=== PATIENT | female | born 1945 | race African-American/Black ===

== ENCOUNTER → 2020-02-18 | Outpatient (CLI) | payer MEDICARE ==
--- NOTE | 2020-02-18 09:05 | WOMENS IMAGING REPORT ---
EXAM DESCRIPTION: BILAT SCREENING MAMMO W/CAD IMAGES COMPLETED DATE/TIME: 02/18/2020 7:46 am REASON FOR STUDY: Z12.31 ENCOUNTER FOR SCREENING MAMMOGRAM FOR MALIGNANT NEOPLASM OF BREAST Z12.31 ENCNTR SCREEN MAMMOGRAM FOR MALIGNANT NEOPLASM OF YARIEL COMPARISON: None. EXAM PARAMETERS: Standard craniocaudal and mediolateral oblique views of each breast recorded using digital acquisition. Read with the assistance of CAD. .[facility] - [employer] Version 9.2 LIMITATIONS: None. FINDINGS: No suspicious masses, suspicious calcifications or architectural distortion. No areas of c oncern. IMPRESSION: NEGATIVE MAMMOGRAM. BIRADS 1 BREAST DENSITY: b. There are scattered areas of fibroglandular density. BIRAD: ASSESSMENT: 1 NEGATIVE RECOMMENDATION: ROUTINE SCREENING COMMENT: The patient has been notified of the results by letter per MQSA requirements. Additional no tification policies are in place for contacting patient with suspicious or incomplete findings. Quality ID #[id number]: [employer] recommends an annual screening mammogram for women aged 40 years or over. This facility utilizes a reminder system to ensure that all patients receive reminder letters, and/or direct phone calls for appointments. This includes reminders for routine scr eening mammograms, diagnostic mammograms, or other Breast Imaging Interventions when appropriate. Th is patient will be placed in the appropriate reminder system. TECHNICAL DOCUMENTATION: FINDING NUMBER: (1) ASSESSMENT: (1) JOB ID: [id number] 2010 [employer]- All Rights Reserved Reading location - IP/workstation name: [email or web address]
== END ==
LOC: WI 07:17
PROVIDERS: ATTEND Obstetrics & Gynecology
DX: Z12.31 Encounter for screening mammogram for malignant neoplasm of breast (principal)
CPT/HCPCS: 77067

== ENCOUNTER 2020-06-10 07:11 | Day surgery (SDC) | payer MEDICARE ==
[~2020-06-10 07:11] MED LIST: CHONDR SU A NA/HYALUR INTRAOC KIT (SURGICARE) ONE; EPINEPHRINE INJ/PF 1 MG/1 ML AMPULE ONE; KETOROLAC TROMETHAMINE 0.45% 4 DROP/0.4 ML DROPERETTE OS PRN; LIDOCAINE 1%/PHENYLEPHRINE 1.5% 1 ML VIAL ONE
[2020-06-10] MEDS ORDERED: MIDAZOLAM 2 MG/2 ML INJ ONE (07:17)
[2020-06-10] MEDS ORDERED: ONDANSETRON HCL INJ/PF 4 MG/2 ML SDV ONE (07:17)
[2020-06-10] MEDS ORDERED: FENTANYL CITRATE INJ/PF 100 MCG/2 ML AMPUL ONE (07:17)
[2020-06-10] MEDS: TROPICAMIDE 1% OPH SOLN 15 ML OS PRN ×3 (07:50→07:57)
[2020-06-10] MEDS: TETRACAINE HCL 0.5% OPH SOLN 4 ML OS PRN ×3 (07:50→08:20)
[2020-06-10] MEDS: BESIFLOXACIN HCL 0.6% OPH SUSP 5 ML BOTTLE OS PRN ×4 (07:50→08:43)
[2020-06-10] MEDS: CYCLOPENTOLATE 0.2%/PHENYLEPHRINE 1% OPH SOLN 2 ML OS PRN ×3 (07:50→07:57)
[2020-06-10] MEDS ORDERED: HYALURONATE SODIUM SYRINGE 0.55 ML ONE (08:39)
[2020-06-10] MEDS: DORZOLAMIDE HCL 2%/TIMOLOL MALEAT 0.5% OPH SOLN 10 ML OS PRN ×2 (08:43)
[2020-06-10] MEDS: PREDNISOLONE ACETATE 1% OPH SUSP 5 ML OS PRN ×2 (08:43)
--- NOTE | 2020-06-10 14:42 | Operative Report ---
Operative Report-[facility] Operative Report: DATE OF SURGERY: June 10, 2020 PREOPERATIVE DIAGNOSIS: NUCLEAR CATARACT, LEFT EYE. Glaucoma POSTOPERATIVE DIAGNOSIS: NUCLEAR CATARACT, LEFT EYE. Glaucoma PROCEDURE PERFORMED: PHACOEMULSIFICATION WITH POSTERIOR CHAMBER INTRAOCULAR LENS IMPLANT, LEFT EYE. With transluminal dilation of aqueous outflow and goniotomy SURGEON: Rakesh Jo DO MEDICATIONS AND ANESTHESIA: Versed: IV Versed Tetracaine drops: 1 to 2 drops given as needed COMPLICATION: [None] INDICATIONS FOR SURGERY: Medical necessity: Best corrected visual acuity worse than 20/40 secondary to cataracts with impairment of ability to carry out needs or desired activities, blurred vision, visual distortion, reduced contrast sens itivity and/or glare with association functional impairment and supporting documentation/testing, and cataracts causing symptomatic impairment of visual functions not corrected with tolerable changes in glasses or contact lenses interfering with activities of daily life. PROCEDURE: Consent: The risks, benefits and alternatives of this procedures was discussed with the patient. The patient read and signed the consent forms, was identified and was seated in the exam chair. IOL: [MX 60 E 19.5] IOL Diopters: [] Phacoemulsification with posterior chamber intraocular lens implant: The face was prepped with 5% povidone iodine solution, and a few drops of 5% povidone iodine solution was instilled into the inferior fornix. A non-fenestrated drape was placed over the eye and the lids were parted with the speculum. A paracentesis was made with a 15 degree blade, and 1% lidocaine MPF followed by viscoelastic was injected into the anterior chamber. A 2.4 mm metal micro- keratome was used to create a temporal clear corneal incision. A circular anterior capsulorrhexis was created, followed by hydro-dissection and hydro- delineation. The phacoemulsification hand piece was inserted and the nucleus was removed with the Phaco chop technique. The irrigation-aspiration hand piece was used to remove the residual cortex, and vacuum the posterior capsule. The capsular bag was inflated and viscoelastic and the above-mentioned IOL was injected into the eye with care to insert both leaning and trailing haptics in the capsular bag. The irrigation/aspiration hand piece was reinserted to remove residual viscoelastic from the capsular bag and anterior chamber. The corneal incision was hydrated, and anterior chamber was inflated with sterile BSS via the paracentesis site, and found to be watertight. In addition the Omni device was used to perform transluminal dilation of aqueous outflow and goniotomy in the inferior 180 degrees. Postop medication:1 drop of prednisolone into operative by followed by 1 drop of Cosopt into operative eye followed by 1 drop of Besivance intraoperative by Other: []
== END 2020-06-10 09:17 | disposition home or self-care (01) ==
LOC: SC 07:11
PROVIDERS: ATTEND Ophthalmology
DX: H25.12 Age-related nuclear cataract, left eye (principal); H40.1121 Primary open-angle glaucoma, left eye, mild stage; I10 Essential (primary) hypertension; E78.00 Pure hypercholesterolemia, unspecified; G47.33 Obstructive sleep apnea (adult) (pediatric)
CPT/HCPCS: 66984; 66175; V2632; J2250; J3490 ×3; A9270; J0171; J3010; J2405

== ENCOUNTER 2020-06-24 07:02 | Day surgery (SDC) | payer MEDICARE ==
[~2020-06-24 07:02] MED LIST changes: -CHONDR SU A NA/HYALUR INTRAOC KIT (SURGICARE) ONE; -EPINEPHRINE INJ/PF 1 MG/1 ML AMPULE ONE; +FENTANYL CITRATE INJ/PF 100 MCG/2 ML AMPUL ONE; +KETOROLAC TROMETHAMINE 0.45% 4 DROP/0.4 ML DROPERETTE OD PRN; -KETOROLAC TROMETHAMINE 0.45% 4 DROP/0.4 ML DROPERETTE OS PRN; -LIDOCAINE 1%/PHENYLEPHRINE 1.5% 1 ML VIAL ONE; +MIDAZOLAM 2 MG/2 ML INJ ONE; +ONDANSETRON HCL INJ/PF 4 MG/2 ML SDV ONE
[2020-06-24] MEDS: TETRACAINE HCL 0.5% OPH SOLN 4 ML OD PRN ×4 (07:40→08:12)
[2020-06-24] MEDS: TROPICAMIDE 1% OPH SOLN 15 ML OD PRN ×3 (07:41→08:04)
[2020-06-24] MEDS: CYCLOPENTOLATE 0.2%/PHENYLEPHRINE 1% OPH SOLN 2 ML OD PRN ×3 (07:41→08:04)
[2020-06-24] MEDS: BESIFLOXACIN HCL 0.6% OPH SUSP 5 ML BOTTLE OD PRN ×4 (07:41→08:37)
[2020-06-24] MEDS: EPINEPHRINE INJ/PF 1 MG/1 ML AMPULE ONE ×2 (08:22)
[2020-06-24] MEDS: CHONDR SU A NA/HYALUR INTRAOC KIT (SURGICARE) ONE ×2 (08:22)
[2020-06-24] MEDS: LIDOCAINE 1%/PHENYLEPHRINE 1.5% 1 ML VIAL ONE ×2 (08:22)
[2020-06-24] MEDS: PREDNISOLONE ACETATE 1% OPH SUSP 5 ML OD PRN ×2 (08:37)
[2020-06-24] MEDS: DORZOLAMIDE HCL 2%/TIMOLOL MALEAT 0.5% OPH SOLN 10 ML OD PRN ×2 (08:37)
[2020-06-24] MEDS ORDERED: HYALURONATE SODIUM SYRINGE 0.55 ML ONE (08:42)
--- NOTE | 2020-06-24 10:24 | Operative Report ---
Operative Report-[facility] Operative Report: DATE OF SURGERY: June 24, 2020 PREOPERATIVE DIAGNOSIS: NUCLEAR CATARACT, RIGHT EYE. POSTOPERATIVE DIAGNOSIS: NUCLEAR CATARACT, RIGHT EYE. PROCEDURE PERFORMED: PHACOEMULSIFICATION WITH POSTERIOR CHAMBER INTRAOCULAR LENS IMPLANT, RIGHT EYE. SURGEON: Rakesh Jo DO MEDICATIONS AND ANESTHESIA: Versed: IV Versed Tetracaine drops: 1 to 2 drops given as needed COMPLICATION: None INDICATIONS FOR SURGERY: Medical necessity: Best corrected visual acuity worse than 20/40 secondary to cataracts with impairment of ability to carry out needs or desired activities, blurred vision, visual distortion, reduced contrast sensitivity and/or glare with association functional impairment and supporting documentation/testing, and cataracts causing symptomatic impairment of visual functions not corrected with tolerable changes in glasses or contact lenses interfering with activities of daily life. PROCEDURE: Consent: The risks, benefits and alternatives of this procedures was discussed with the patient. The patient read and signed the consent forms, was identified and was seated in the exam chair. IOL: MX 60 E 19.5 IOL Diopters: Phacoemulsification with posterior chamber intraocular lens implant: The face was prepped with 5% povidone iodine solution, and a few drops of 5% povidone iodine solution was instilled into the inferior fornix. A non-fenestrated drape was placed over the eye and the lids were parted with the speculum. A paracentesis was made with a 15 degree blade, and 1% lidocaine MPF followed by viscoelastic was injected into the anterior chamber. A 2.4 mm metal micro- keratome was used to create a temporal clear corneal incision. A circular anterior capsulorrhexis was created, followed by hydro-dissection and hydro- delineation. The phacoemulsification hand piece was inserted and the nucleus was removed with the Phaco chop technique. The irrigation-aspiration hand piece was used to remove the residual cortex, and vacuum the posterior capsule. The capsular bag was inflated and viscoelastic and the above-mentioned IOL was injected into the eye with care to insert both leaning and trailing haptics in the capsular bag. The irrigation/aspiration hand piece was reinserted to remove residual viscoelastic from the capsular bag and anterior chamber. The corneal incision was hydrated, and anterior chamber was inflated with sterile BSS via the paracentesis site, and found to be watertight. Postop medication: 1 drop of prednisolone into operative by followed by 1 drop of Cosopt into operative eye followed by 1 drop of Besivance intraoperative by other:
== END 2020-06-24 09:09 | disposition home or self-care (01) ==
LOC: SC 07:02
PROVIDERS: ATTEND Ophthalmology
DX: H25.11 Age-related nuclear cataract, right eye (principal); H40.1131 Primary open-angle glaucoma, bilateral, mild stage; Z98.42 Cataract extraction status, left eye; I10 Essential (primary) hypertension; E78.00 Pure hypercholesterolemia, unspecified
CPT/HCPCS: 66984; 66174; V2632; J2250; J3490 ×3; A9270; J0171; J3010; J2405

== ENCOUNTER → 2020-06-25 | Outpatient (CLI) | payer MEDICARE ==
--- NOTE | 2020-06-25 11:22 | RADIOLOGY REPORT (SQ) ---
EXAM DESCRIPTION: MRI LT UPPER JOINT WITHOUT IMAGES COMPLETED DATE/TIME: 06/25/2020 8:56 am REASON FOR STUDY: PAIN IN L SHOULDER M25.512 PAIN IN LEFT SHOULDER COMPARISON: None. TECHNIQUE: Left shoulder images acquired and stored on PACS. Multiplanar imaging to include fat sens itive sequences such as T1, water sensitive sequences such as FST2/STIR, cartilage sensitive sequence s such as FSPD/gradient-echo sequences. LIMITATIONS: Suboptimal patient positioning. FINDINGS: BONE MARROW AND CORTEX: No worrisome bone lesions or marrow replacement. No occult fractur es. JOINT OR BURSAL EFFUSION: Fluid is seen within the subacromial/ subdeltoid bursa. No glenohumeral or acromioclavicular joint effusions. GLENO-HUMERAL ARTICULATION: Normal articulation. No subluxation. No cystic change. No osteophytes or cartilage loss. ACROMION AND AC JOINT: Moderate acromioclavicular arthropathy with downward projecting spur. ROTATOR CUFF AND INTERVAL: Tendinosis is seen of the supraspinatus without full or partial thickness tear. The infraspinatus, teres minor, and subscapularis demonstrate grossly normal signal and attach ment. Rotator cuff muscle bulk and signal appear symmetric. LABRUM AND BICEPS LABRAL COMPLEX: Intact. No labral tear. Intra-articular long-head biceps tendon n ormal. Distal biceps in normal location in bicipital groove. REMAINDER OF LABRUM AND IGHL : No gross tear or paralabral cyst formation. Labral evaluation is less than optimal without joint distention. No thickening of IGHL to suggest adhesive capsulitis. PERIARTICULAR AND ADJACENT SOFT TISSUES: No masses or abnormal nodes. OTHER: No other significant finding. 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 TECHNICAL DOCUMENTATION: JOB ID: [id number] 2010 [employer]- All Rights Reserved Reading location - IP/workstation name: [email or web address]
--- OUTSIDE RECORDS SUMMARY | 2020-07-03 15:38 | XMS REPORT ---
:1945 Author Organization [facility] Address [facility] [address] [place] [address] Care Team Providers Name Role Phone Jaynamarkanabelle, A Primary Care Physician Unavailable Allergies, Adverse Reactions, Alerts This patient has no known allergies or adverse reactions. Medications Ordered Filled Start Stop Current Ordering Indication Dosage Frequency Signature Comments Components Medication Medication Date Date Medication? Clinician (SIG) Name Name Ramipril 5 Yes QD 1 capsule MG Orally Once a day Montelukast Yes QD 1 tablet Sodium 10 Orally MG Once a day Meloxicam Yes 1 tablet 15 MG Orally as needed Fluticasone Yes QD 1 spray in Propionate each 50 MCG/ACT nostril Nasally Once a day Atorvastati Yes QD 1 tablet n Calcium Orally 80 MG daily Lansoprazol Yes QD 1 tablet e 30 MG Orally Once a day Problems Condition Condition Condition Status Onset Resolution Last Treatin g Comments Name Details Category Date Date Treatment Clinician Date Hypothyroid Hypothyroid Problem Active ism ism, 12-10 unspecified 00:00: 00 Hyperlipide Hyperlipide Problem Active arlene arlene, 09-11 unspecified 00:00: 00 Essential Essential Problem Active hypertensio (primary) 09-11 n hypertensio 00:00: n 00 Late Allergy, Problem Active effects of unspecified 09-11 injury, , sequela 00:00: poisoning, 00 toxic effects and other external causes Polyarthrit Other Problem Active is polyosteoar 09-11 thritis 00:00: 00 Gastro-esop Gastro-esop Problem Active hageal hageal 09-11 reflux reflux 00:00: disease disease 00 with with esophagitis esophagitis Procedures Procedure Date / Time Performed Performing Clinician Devic e ANNUAL WELLNESS VST; PPS SUBSQT VST 2019-12-11 00:00:00 ANNUAL DEPRESSION SCREENING 15 MIN 2019-12-11 00:00:00 ANNUAL ALCOHOL MISUSE SCREEN 15 MIN 2019-12-11 00:00:00 Results Test Description Test Time Test Comments Text Results Atomic Results Result Comments CBC + AUTOMATED DIFF 2019-12-11 00:00:00 Test Item Value Reference Range Comments WBC (test code = WBC) 4.5 4.2-11.8 RBC (test code = RBC) 3.92 3.8-5.0 HEMOGLOBIN (test code = HEMOGLOBIN) 12.3 11.3-14.9 HEMATOCRIT (test code = HEMATOCRIT) 36 34-44.3 MCV (test code = MCV) 93 80.8-97.4 MCH (test code = MCH) 31.5 26.6-33.0 MCHC (test code = MCHC) 34.0 32-34.9 RDW (test code = RDW) 15.3 11.8-15.5 PLATELET (test code = PLATELET) 182 147-365 MPV (test code = MPV) 10.36 6.00-12.00 SEGMENTED% (test code = SEGMENTED%) 48.2 43.7-73.5 SEGMENTED# (test code = SEGMENTED#) 2.2 1.9-7.5 LYMPHOCYTES% (test code = LYMPHOCYTES%) 39.85 17.9-45. 1 LYMPHOCYTES# (test code = LYMPHOCYTES#) 1.8 1-4 MONOCYTES% (test code = MONOCYTES%) 9.1 3.8-10 MONOCYTES# (test code = MONOCYTES#) 0.4 0.2-0.9 EOSINOPHILS% (test code = EOSINOPHILS%) 2.40 0.0-6.1 EOSINOPHILS# (test code = EOSINOPHILS#) 0.11 0.0-0.5 BASOPHILS% (test code = BASOPHILS%) 0.49 0.0-0.9 BASOPHILS# (test code = BASOPHILS#) 0.02 0.0-0.1 COMPREHENSIVE [id number] 00:00:00 Test Item Value Reference Range Comments SODIUM (test code = SODIUM) 141 136-145 POTASSIUM (test code = POTASSIUM) 4.4 3.5-5.1 CHLORIDE (test code = CHLORIDE) 103 98-107 CARBONDIOXIDE (test code = CARBONDIOXIDE) 31.0 17-32 GLUCOSE (test code = GLUCOSE) 94 70-99 BUN (test code = BUN) 9 7-25 CREATININESERUM (test code = CREATININESERUM) 0.78 0. 5-1.2 BUN/CREATININERATIO (test code = BUN/CREATININERATIO) 12 8-28 BILIRUBIN,Total (test code = BILIRUBIN,Total) 0.3 0. 2-1.0 CALCIUM (test code = CALCIUM) 9.1 8.6-10.5 PROTEINTOTAL (test code = PROTEINTOTAL) 6.9 6.6-8.2 ALBUMIN (test code = ALBUMIN) 4.3 3.5-5.7 ALK.PHOSPHATASE (test code = ALK.PHOSPHATASE) 115 34 -104 ALT(SGPT) (test code = ALT(SGPT)) 22 7-52 AST(SGOT) (test code = AST(SGOT)) 19 11-39 GLOBULIN (test code = GLOBULIN) 2.6 1.8-4.0 A/GRATIO (test code = A/GRATIO) 1.7 0.8-2.7 GLOMERULARFILT.RATE (test code = GLOMERULARFILT.RATE) 77 >60 HEMOGLOBIN A1c (HGB AIC)2019-12-11 00:00:00 Test Item Value Reference Range Comments FEUNRINNIMB2c(HGBAIC) (test code = 4548-4) 6.3 4.0-5 .6 HEPATITIS [id number] 00:00:00 Test Item Value Reference Range Comments HEPATITISATOTALAB (test code = NONREACTIVE NONREACTIVE HEPATITISATOTALAB) HEPATITISBSURF.AG. (test code = NONREACTIVE NONREACTIVE HEPATITISBSURF.AG.) HEPATITISBSURFACEAB (test code = 3.1 0-9.9 HEPATITISBSURFACEAB) HEPATITISCAB (test code = HEPATITISCAB) NONREACTIVE NONREACT BINA HEPATITISBCOREANTIBODY (test code = NON REAC NON REAC HEPATITISBCOREANTIBODY) HIV COMBO AG/AB 4TH [id number] 00:00:00 Test Item Value Reference Range Comments HIVCOMBOAG/JT9NLPOV (test code = NONREACTIVE NONREACTIVE HIVCOMBOAG/XI4XYRAB) LIPID [id number] 00:00:00 Test Item Value Reference Range Comments CHOLESTEROL (test code = CHOLESTEROL) 165 <200 TRIGLYCERIDES (test code = TRIGLYCERIDES) 64 10-149 HDLCHOLESTEROL (test code = HDLCHOLESTEROL) 54 40-1 99 LDL/HDLRATIO (test code = LDL/HDLRATIO) 1.81 0.00-4.9 7 LDLCHOLESTEROL,calc. (test code = 98 <100 LDLCHOLESTEROL,calc.) VLDLCHOLESTEROL,calc. (test code = 13 5-40 VLDLCHOLESTEROL,calc.) CHOLESTEROL/HDLRATIO (test code = 3.06 2.00-5.00 CHOLESTEROL/HDLRATIO) NON-HDLCHOLESTEROL (test code = NON-HDLCHOLESTEROL) 111 0-159 URIC [id number] 00:00:00 Test Item Value Reference Range Comments URICACID (test code = URICACID) 4.0 2.3-6.6 [id number] 00:00:00 Test Item Value Reference Range Comments COLOR (test code = COLOR) YELLOW YELLOW CLARITY (test code = CLARITY) HAZY CLEAR SPECIFICGRAVITY (test code = SPECIFICGRAVITY) 1.016 1. 005-1.025 pH (test code = pH) 6.0 5.0-8.5 URINEPROTEIN (test code = URINEPROTEIN) NEGATIVE NEGATIVE URINEGLUCOSE (test code = URINEGLUCOSE) NEGATIVE NEGATIVE URINEKETONE (test code = URINEKETONE) NEGATIVE NEGATIVE URINEBILIRUBIN (test code = URINEBILIRUBIN) NEGATIVE NEGA TIVE URINEBLOOD (test code = URINEBLOOD) SMALL NEGATIVE URINENITRITE (test code = URINENITRITE) NEGATIVE NEGATIVE UROBILINOGEN (test code = UROBILINOGEN) 0.2 0.2-1.0 LEUKOCYTE (test code = LEUKOCYTE) LARGE NEGATIVE BACTERIA (test code = BACTERIA) MANY NONE-OCC MUCOUS (test code = MUCOUS) FEW NONE-OCC SQUAMOUSEPITHELIAL (test code = SQUAMOUSEPITHELIAL) 10 0-2 REDBLOODCELLS (test code = REDBLOODCELLS) 0-2 0-2 TRANSITIONALEPITHELIAL (test code = 1 0-1 TRANSITIONALEPITHELIAL) WHITEBLOODCELLS (test code = WHITEBLOODCELLS) 0-5 0- 5 TSH + FREE [id number] 00:00:00 Test Item Value Reference Range Comments [id number] (test code = [id number]) 1.530 0.340-4.410 FREET4 (test code = FREET4) 0.93 0.61-1.12 LAB [id number] 00:00:00 Test Item Value Reference Range Comments PDF (test code = PDF) LAB Assessments Condition Name Status Diagnosis Date Treating Clinici an - Encounter for screening for infections Active Ojebuoboh, [place] with a predominantly sexual mode of transmission Z11.3 - Encounter for general adult medical Active Ojebuoboh, [place] examination without abnormal findings Z00.00 - Essential (primary) hypertension I10 Active Ojebuoboh, [place] - Hypothyroidism, unspecified E03.9 Active Ojebuoboh, [place] - Encounter for screening for diabetes Active Ojebuoboh, [place] mellitus Z13.1 - Essential (primary) hypertension I10 Active Ojebuoboh, [place] - Gastro-esophageal reflux disease with Active Ojebuoboh, [place] esophagitis K21.0 - Hyperlipidemia, unspecified E78.5 Active Ojebuoboh, [place] - Other polyosteoarthritis M15.8 Active Ojebuoboh, [place] Encounters Start End Encounter Admission Attending Care Care Encounter Date/Time Date/Time Type Type Clinicians Facility Department ID 2020-06-11 2020-06-11 [id number] 00:00:00 00:00:00 PA PA 2019-12-11 2019-12-11 [facility] [place] [id number] 00:00:00 00:00:00 PA 2019-09-11 2019-09-11 [id number] 00:00:00 00:00:00 PA PA Social History This patient has no known social history. Vital Signs Vital Name Observation Time Observation Value Comments bmi 2019-09-11 08:45:00 30.94 kg/m2 blood pressure systolic 2019-09-11 08:45:00 160 mm[Hg] blood pressure diastolic 2019-09-11 08:45:00 80 mm[Hg] height 2019-09-11 08:45:00 62 [in_us] weight 2019-09-11 08:45:00 169.2 [lb_av] height 2019-12-11 09:00:00 62 [in_us] weight 2019-12-11 09:00:00 166.2 [lb_av] bmi 2019-12-11 09:00:00 30.40 kg/m2 heart rate 2019-12-11 09:00:00 68 /min blood pressure systolic 2019-12-11 09:00:00 143 mm[Hg] blood pressure diastolic 2019-12-11 09:00:00 78 mm[Hg] height 2019-09-11 08:45:00 62 [in_us] weight 2019-09-11 08:45:00 169.2 [lb_av] bmi 2019-09-11 08:45:00 30.94 kg/m2 blood pressure systolic 2019-09-11 08:45:00 160 mm[Hg] blood pressure diastolic 2019-09-11 08:45:00 80 mm[Hg]
== END ==
LOC: RAD 08:15
PROVIDERS: ATTEND Internal Medicine
DX: M75.42 Impingement syndrome of left shoulder (principal); M25.512 Pain in left shoulder

== ENCOUNTER → 2020-06-25 | Outpatient (CLI) | payer MEDICARE | LOC: RAD 08:15 | PROVIDERS: ATTEND Internal Medicine | DX: Z53.9 Procedure and treatment not carried out, unspecified reason (principal) ==